=== PATIENT | female | born 1995 | race African-American/Black ===

== ENCOUNTER 2016-11-23 19:39 | Emergency (ER) | payer OTHER ==
[~2016-11-23] VITALS: Ht 167.6 cm; Wt 55.6 kg
[2016-11-23 22:50] VITALS: BP 108/66
[2016-11-23] MEDS ORDERED: AMOXICILLIN500 MG PO (23:11)
[2016-11-23] MEDS ORDERED: PERCOCET 5/325M1 TAB PO (23:11)
== END 2016-11-23 23:20 | disposition home or self-care (01) | DRG 159 ==
LOC: ED 19:39
DX: K08.89 Other specified disorders of teeth and supporting structures (principal); R42 Dizziness and giddiness; S02.5XXA Fracture of tooth (traumatic), initial encounter for closed fracture; T39.8X5A Adverse effect of other nonopioid analgesics and antipyretics, not elsewhere classified, initial encounter; Y92.009 Unspecified place in unspecified non-institutional (private) residence as the place of occurrence of the external cause

== ENCOUNTER 2017-01-16 00:42 | Emergency (ER) | payer OTHER ==
[~2017-01-16] VITALS: Ht 167.6 cm; Wt 55.6 kg
[~2017-01-16 00:42] MED LIST: AMOXICILLIN500 MG PO; PERCOCET 5/325M1 TAB PO
[2017-01-16 02:02] LABS: HEMATOCRIT 38.7 % (37.0-47.0); HEMOGLOBIN 12.6 g/dl (12.0-16.0); IMMATURE GRANULOCYTES 0.3 % (0.0-1.0); MEAN CELL VOLUME 86.8 fL CALC (80.0-100.0); MEAN CORPUSCULAR HGB 28.3 pG CALC (26.0-32.0); MEAN CORPUSCULAR HGB CONC 32.6 g/L CALC (32.0-36.0); NEUT# 13.6 thou/uL (2.00-7.15); RED BLOOD COUNT 4.46 mill/uL (4.20-5.60); RED CELL DISTRI WIDTH 13.3 % (11.5-15.5); URINE BILIRUBIN - DIPSTICK NEGATIVE (NEGATIVE); URINE BLOOD DIPSTICK NEGATIVE (NEGATIVE); URINE CLARITY SLIGHT CLOUDY; URINE COLOR YELLOW; URINE GLUCOSE - DIPSTICK NEGATIVE (NEGATIVE); URINE KETONE 15 mg/dL (NEGATIVE); URINE LEUK ESTERASE NEGATIVE (NEGATIVE); URINE NITRITE - DIPSTICK NEGATIVE (Negative); URINE PROTEIN - DIPSTICK TRACE mg/dL (NEG-TRACE); URINE SPECIFIC GRAVITY >=1.030; URINE UROBILINOGEN - DIPSTICK 0.2 E.U./dL (0.2)
[2017-01-16 02:16] LABS: ALBUMIN 4.5 g/dL (3.2-5.0); ALKALINE PHOSPHATASE 66 u/l (38-126); ANION GAP 15 (6-22 (CALC)); BILIRUBIN, TOTAL 0.2 mg/dL (0.0-1.4); BUN 12 mg/dL (7-17); BUN/CREATININE RATIO 23 (12-20 (CALC)); CALCIUM 9.5 mg/dL (8.4-10.2); CARBON DIOXIDE 23 mmol/l (22-30); CHLORIDE 105 mmol/l (95-108); CREATININE 0.5 mg/dL (0.5-1.0); GFR > 60 ML/MIN (>=60 (CALC)); GFR FOR AFR.AMER. > 60 ML/MIN (>=60 (CALC)); GLUCOSE 92 mg/dL (65-105); POTASSIUM 3.9 mmol/l (3.5-5.1); SGOT/AST 26 u/l (14-36); SGPT/ALT 40 u/l (9-52); SODIUM 140 mmol/l (137-146); TOTAL PROTEIN 7.8 g/dL (6.3-8.2)
[2017-01-16 02:58] LABS: BETA-HCG, QUANT(RESULT NUMBER) 166010 mIU/mL
[2017-01-16] MEDS ORDERED: PROMETHEGAN25 MG RE (03:09)
[2017-01-16 03:25] VITALS: BP 98/51
== END 2017-01-16 03:25 | disposition home or self-care (01) | DRG 781 ==
LOC: ED 00:42
DX: O98.511 Other viral diseases complicating pregnancy, first trimester (principal); E86.9 Volume depletion, unspecified; K52.9 Noninfective gastroenteritis and colitis, unspecified; R11.2 Nausea with vomiting, unspecified; R10.33 Periumbilical pain

== ENCOUNTER 2017-01-23 17:35 | Emergency (ER) | payer OTHER ==
[~2017-01-23] VITALS: Ht 167.6 cm; Wt 57.7 kg
[~2017-01-23 17:35] MED LIST changes: +PROMETHEGAN25 MG RE
[2017-01-23 19:46] LABS: HEMATOCRIT 36.9 % (37.0-47.0); IMMATURE GRANULOCYTES 0.2 % (0.0-1.0); MEAN CELL VOLUME 86.4 fL CALC (80.0-100.0); MEAN CORPUSCULAR HGB 28.1 pG CALC (26.0-32.0); MEAN CORPUSCULAR HGB CONC 32.5 g/L CALC (32.0-36.0); NEUT# 4.71 thou/uL (2.00-7.15); RED BLOOD COUNT 4.27 mill/uL (4.20-5.60); RED CELL DISTRI WIDTH 13.1 % (11.5-15.5); URINE BILIRUBIN - DIPSTICK NEGATIVE (NEGATIVE); URINE BLOOD DIPSTICK NEGATIVE (NEGATIVE); URINE CLARITY CLEAR; URINE COLOR YELLOW; URINE GLUCOSE - DIPSTICK NEGATIVE (NEGATIVE); URINE KETONE NEGATIVE (NEGATIVE); URINE LEUK ESTERASE NEGATIVE (NEGATIVE); URINE NITRITE - DIPSTICK NEGATIVE (Negative); URINE PROTEIN - DIPSTICK TRACE mg/dL (NEG-TRACE); URINE SPECIFIC GRAVITY >=1.030; URINE UROBILINOGEN - DIPSTICK 0.2 E.U./dL (0.2)
[2017-01-23 20:02] LABS: ALBUMIN 4.4 g/dL (3.2-5.0); ALKALINE PHOSPHATASE 54 u/l (38-126); AMYLASE 64 u/l (30-110); ANION GAP 17 (6-22 (CALC)); BILIRUBIN, TOTAL 0.3 mg/dL (0.0-1.4); BUN 11 mg/dL (7-17); BUN/CREATININE RATIO 23 (12-20 (CALC)); CALCIUM 9.7 mg/dL (8.4-10.2); CARBON DIOXIDE 20 mmol/l (22-30); CHLORIDE 106 mmol/l (95-108); CREATININE 0.5 mg/dL (0.5-1.0); GFR > 60 ML/MIN (>=60 (CALC)); GFR FOR AFR.AMER. > 60 ML/MIN (>=60 (CALC)); GLUCOSE 76 mg/dL (65-105); LIPASE 39 u/l (23-300); POTASSIUM 4.3 mmol/l (3.5-5.1); SGOT/AST 26 u/l (14-36); SGPT/ALT 36 u/l (9-52); SODIUM 138 mmol/l (137-146); TOTAL PROTEIN 7.6 g/dL (6.3-8.2)
[2017-01-23] MEDS ORDERED: OB COMPLET2 PO (22:17)
[2017-01-23 22:33] VITALS: BP 95/60
== END 2017-01-23 22:40 | disposition home or self-care (01) | DRG 781 ==
LOC: ED 17:35
PROVIDERS: Emergency Medicine
DX: O26.891 Other specified pregnancy related conditions, first trimester (principal); R10.13 Epigastric pain; Z3A.00 Weeks of gestation of pregnancy not specified

== ENCOUNTER 2017-07-26 21:44 | Inpatient (IN) | payer OTHER ==
[~2017-07-26] VITALS: Ht 167.6 cm; Wt 68.9 kg
--- NOTE | 2017-07-26 21:40 | NUR ---
ARRIVAL TO OB UNIT, VIA WHEELCHAIR C/O CONTRACTIONS ALL DAY, BECOMING STRONGER AND MORE REGULAR SINCE 190. DENIES BLEEDING/ROM, FETUS ACTIVE. ORIENTED TO ROOM ANDCAL SYSTEM. PLAN OF CARE TO OBTAIN URINE SAMPLE FOR INFECTION AND DOA, MONITOR FOR UTERINE ACTIVITY AND WELL-BEING, CHECK CERVIX AND CALL MD, EXPLAINED TO PATIENT AND AGREED UPON.
[~2017-07-26 21:44] MED LIST changes: +OB COMPLET2 PO
[2017-07-26 22:05] VITALS: BP 91/50
[2017-07-26 22:17] LABS: URINE BILIRUBIN - DIPSTICK NEGATIVE (NEGATIVE); URINE BLOOD DIPSTICK NEGATIVE (NEGATIVE); URINE COLOR YELLOW; URINE GLUCOSE - DIPSTICK NEGATIVE (NEGATIVE); URINE KETONE NEGATIVE (NEGATIVE); URINE NITRITE - DIPSTICK NEGATIVE (Negative); URINE PROTEIN - DIPSTICK NEGATIVE (NEG-TRACE); URINE SPECIFIC GRAVITY 1.015; URINE UROBILINOGEN - DIPSTICK 0.2 E.U./dL (0.2)
[2017-07-26 22:19] LABS: URINE CLARITY CLEAR; URINE LEUK ESTERASE SMALL (NEGATIVE)
[2017-07-26 22:20] LABS: BARBITURATES NEGATIVE (NEGATIVE); COCAINE NEGATIVE (NEGATIVE); METHADONE NEGATIVE (NEGATIVE); TETRAHYDROCANNABIONOL NEGATIVE (NEGATIVE); TRICYLIC ANTIDEPRESSANTS NEGATIVE (NEGATIVE)
[2017-07-26 22:21] LABS: OXCYCODONE NEGATIVE (NEGATIVE)
[2017-07-26 22:25] LABS: URINE SQUAMOUS EPITHELIAL CELL FEW EPI/hpf (0-FEW)
--- NOTE | 2017-07-26 22:49 | NUR ---
CALL PLACED TO DR. GUY TO ADVISE OF PATIENT HISTORY AND ASSESSMENT. ADVISED WILL BE IN TO ASSESS.
[2017-07-26 23:05] VITALS: BP 99/53
--- NOTE | 2017-07-26 23:11 | NUR ---
DR. GUY ON UNIT
--- NOTE | 2017-07-26 23:45 | NUR ---
UP TO BATHROOM. BOWEL MOVEMENT.
[2017-07-27] VITALS (12 sets, daily range): BP systolic 89–124; BP diastolic 48–67
--- NOTE | 2017-07-27 00:05 | NUR ---
UNABLE TO OBTAIN TRACING DUE TO MATERNAL POSITION AND MOVEMENT.
--- NOTE | 2017-07-27 00:10 | NUR ---
CALL PLACED TO DR. GUY AND PATIENT'S REQUEST FOR PAIN MEDCATION. NEW ORDERS RECEIVED.
--- NOTE | 2017-07-27 00:19 | NUR ---
CALL PLACED TO MD AND REPORT GIVEN RE/ PATIENT'S REQUEST FOR PAIN MEDICATION. NEW ORDERS RECEIVED. UPDATED PLAN OF CARE EXPLAINED TO PATIENT AND AGREED UPON.
--- NOTE | 2017-07-27 00:50 | NUR ---
MEDICATED WITH NUBAIN 10 MGS AFTER VAGINAL EXAM.
[2017-07-27 00:53] LABS: HEMATOCRIT 30.5 % (37.0-47.0); HEMOGLOBIN 9.2 g/dl (12.0-16.0); IMMATURE GRANULOCYTES 0.5 % (0.0-1.0); MEAN CELL VOLUME 80.7 fL CALC (80.0-100.0); MEAN CORPUSCULAR HGB 24.3 pG CALC (26.0-32.0); MEAN CORPUSCULAR HGB CONC 30.2 g/L CALC (32.0-36.0); NEUT# 7.74 thou/uL (2.00-7.15); RED BLOOD COUNT 3.78 mill/uL (4.20-5.60); RED CELL DISTRI WIDTH 15.9 % (11.5-15.5)
--- NOTE | 2017-07-27 01:00 | NUR ---
NO FAMILY SUPPORT AT THIS TIME. PATIENT STATES S.O. IS ON THE WAY.
[2017-07-27 01:05] LABS: ALBUMIN 3.5 g/dL (3.2-5.0); ALKALINE PHOSPHATASE 121 u/l (38-126); ANION GAP 13 (6-22 (CALC)); BILIRUBIN, TOTAL 0.2 mg/dL (0.0-1.4); BUN 9 mg/dL (7-17); BUN/CREATININE RATIO 13 (12-20 (CALC)); CARBON DIOXIDE 21 mmol/l (22-30); CHLORIDE 106 mmol/l (95-108); CREATININE 0.7 mg/dL (0.5-1.0); GFR > 60 ML/MIN (>=60 (CALC)); GFR FOR AFR.AMER. > 60 ML/MIN (>=60 (CALC)); GLUCOSE 83 mg/dL (65-105); POTASSIUM 4.3 mmol/l (3.5-5.1); SGOT/AST 20 u/l (14-36); SGPT/ALT 18 u/l (9-52); SODIUM 136 mmol/l (137-146); TOTAL PROTEIN 6.5 g/dL (6.3-8.2)
--- NOTE | 2017-07-27 01:45 | NUR ---
PATIENT REQUESTING EPIDURAL AT THIS TIME. CERVICAL EXAM 8-9 CMS 0 STATION. PATIENT ADVISED OF NEED TO MOVE TO BIRTHING ROOM FOR DELIVERY. UNABLE TO HAVE FURTHER PAIN MEDICATION. PATIENT APPREHENSIVE, BUT RESPONDING WELL TO TEACHING AND SUPPORT.
--- NOTE | 2017-07-27 01:50 | NUR ---
CALL PLACED TO . ADVISED WILL BE EN ROUTE.
--- NOTE | 2017-07-27 01:55 | NUR ---
SROM WHILE TRANSFERRING TO WHEELCHAIR. FLUID CLEAR.
--- NOTE | 2017-07-27 02:20 | NUR ---
MD AT BEDSIDE. PATIENT FEELING PRESSURE. ENCOURAGED TO PUSH WITH CONTRACTIONS. REMAINS ON LT. SIDE.
--- NOTE | 2017-07-27 03:00 | NUR ---
PATIENT TURNED TO RT. SIDE, ENCOURAGED FREQUENT POSITION CHANGES FOR OPTIMUM DESCENT.
--- NOTE | 2017-07-27 03:20 | NUR ---
PRESENTING PART ON PERINEUM. MD IN ATTENDANCE.
--- NOTE | 2017-07-27 03:35 | NUR ---
VIABLE FEMALE INFANT AT 0325 OVER INTACT PERINEUM. PLACENTA DELIVERED SPONTANEOUSLY BY CONTROLLED CORD TRACTION. PATIENT CLEANED AND GIVEN WARM BLANKETS.
--- NOTE | 2017-07-27 04:50 | NUR ---
UP TO BATHROOM WITH ASSIST. TOLERATED WELL WITHOUT DIZZINESS OR LIGHTHEADEDNESS. ABLE TO VOID 300 MLS CLEAR URINE WITHOUT DIFFICULTY. INSTRUCTED IN PERICARE. AMBULATED TO ROOM 205 WITHOUT DIFFICULTY. ORIENTED TO ROOM AND CALL SYSTEM. SIDE RAILS UP X 2. CALL HAN WITHIN REACH.
--- NOTE | 2017-07-27 06:02 | NUR ---
REPORT PREPARED FOR ONCOMING SHIFT.
--- NOTE | 2017-07-27 06:32 | NUR ---
RESTING QUIETLY WITHOUT COMPLAINT. NO CLINICAL NEEDS IDENTIFIED AT THIS TIME. SIDE RAILS UP X 2. CALL HAN WITHIN REACH. REPORT PREPARED FOR ONCOMING SHIFT.
--- NOTE | 2017-07-27 07:30 | NUR ---
PATIENT LYING IN BED AWAKE. ASSESSMENT DONE CHARTED. IVF OF LR WITH PITOCIN IN PROGRESS. COMPLAINS OF LOWER ABDOMINAL CRAMPING. ADVISED TO VOID. SAME DONE. WARM COMPRESS APPLIED TO LOWER ABDOMEN FOR PAIN RELIEF. MOTRIN NOT YET DUE. WILL GET ADDITIONAL PAIN MED ORDER FROM MD IF PAIN IS NOT RELIEVED BY COMFORT MEASURES. BREAKFAST OFFERED. NO OTHER CONCERN VOICED.
--- NOTE | 2017-07-27 08:10 | NUR ---
PATIENT STATES PAIN RELIEVED BY VOIDING. WILL CONTINUE TO MONITOR.
--- NOTE | 2017-07-27 14:00 | NUR ---
encouraged to watch discharge videos and read instuctions. rn will review same afterwards.
--- NOTE | 2017-07-27 18:58 | NUR ---
in room with infant. offered no concerns. end of shift report given to neena carreon.
--- NOTE | 2017-07-27 19:00 | NUR ---
REPORT RECEIVED FROM Wai TARIQ RN. BEDSIDE REPORTING COMPLETED. PATIENT UP AND AROUND IN ROOM. GIVES PAIN SCALE 5/10 BUT DECLINES MEDICATION AT THIS TIME. IS AWARE THAT IT IS AVAILABLE. WILL CONTINUE TO MONITOR.
--- NOTE | 2017-07-27 21:20 | NUR ---
ASSESSMENT COMPLETED. NO CLINICAL NEEDS IDENTIFIED AT THIS TIME. REMINDED TO WATCH [facility] EDUCATION VIDEOS. VERBALIZED UNDERSTANDING.
--- NOTE | 2017-07-27 23:37 | NUR ---
RESTING WITH EYES CLOSED, BED IN THE LOWEST POSITION. SIDE RAILS UP X 2. CALL BWELL WITHIN REACH.
[2017-07-28 04:00] LABS: HEMATOCRIT 31.5 % (37.0-47.0); HEMOGLOBIN 9.5 g/dl (12.0-16.0); IMMATURE GRANULOCYTES 0.5 % (0.0-1.0); MEAN CELL VOLUME 80.4 fL CALC (80.0-100.0); MEAN CORPUSCULAR HGB 24.2 pG CALC (26.0-32.0); MEAN CORPUSCULAR HGB CONC 30.2 g/L CALC (32.0-36.0); NEUT# 7.66 thou/uL (2.00-7.15); RED BLOOD COUNT 3.92 mill/uL (4.20-5.60)
[2017-07-28 04:06] VITALS: BP 91/56
--- NOTE | 2017-07-28 04:08 | NUR ---
LABS DRAWN ORDERED WITHOUT DIFFICULTY. PATIENT TOLERATED WELL. DENIES FURTHER NEEDS AT THIS TIME. SIDE RAILS UP X 2. CALL HAN WITHIN [facility].
--- NOTE | 2017-07-28 06:15 | NUR ---
REPORT PREPARED FOR ONCOMING SHIFT.
[2017-07-28 08:15] VITALS: BP 95/60
--- NOTE | 2017-07-28 08:15 | NUR ---
ASSESSMENT IS COMPLETED: PT EXPRESSED CONCERN RE: A STOOL SOFTENER. ABD IS SOFT WITH ACTIVE BS. CONTINUE TO OSBERVE AND MONITOR.
[2017-07-28] MEDS ORDERED: FERR SULFATE325 MG PO (10:59)
[2017-07-28] MEDS ORDERED: NORCO1 TA1 PO (10:59)
[2017-07-28] MEDS ORDERED: IBUPROFEN600 MG PO (11:00)
--- NOTE | 2017-07-28 12:04 | NUR ---
IN TO VISIT WITH PT. DISCHARGE INSTRUCTIONS ARE BEING PREPAIRED.AND GIVEN TO PT. SHE IS IN THE SHOWER WAITING ON HER RIDE.
--- NOTE | 2017-07-28 14:42 | NUR ---
pt has been transported from the unit to car. with on her lap. all papers with pt. all belongings. Discharge instructions given. Patient verbalizes understanding of same. Discharged in stable condition via Wheelchair to Home with family. All belongings sent with pt.
== END 2017-07-28 14:21 | disposition home or self-care (01) | DRG 775 ==
LOC: OB 21:44 → OBOP 21:44 → OB 07-27 00:40
PROC: 10E0XZZ Delivery of Products of Conception, External Approach (ICD-10-PCS; principal; 2017-07-27)
DX: O99.02 Anemia complicating childbirth (principal); D50.9 Iron deficiency anemia, unspecified; Z3A.38 38 weeks gestation of pregnancy; Z37.0 Single live birth

== ENCOUNTER 2017-12-05 17:33 | Emergency (ER) | payer OTHER ==
[~2017-12-05] VITALS: Ht 167.6 cm; Wt 59.8 kg
[~2017-12-05 17:33] MED LIST changes: +FERR SULFATE325 MG PO; +IBUPROFEN600 MG PO; +NORCO1 TA1 PO
[2017-12-05] MEDS ORDERED: AFRIN 12 HOUR0.05 % (17:50)
[2017-12-05] MEDS ORDERED: MOTRIN800 MG PO (17:50)
[2017-12-05] MEDS ORDERED: ZOFRAN4 MG/TAB PO (18:09)
[2017-12-05 18:10] VITALS: BP 111/68
== END 2017-12-05 18:10 | disposition home or self-care (01) | DRG 781 ==
LOC: ED 17:33
DX: O98.519 Other viral diseases complicating pregnancy, unspecified trimester (principal); B34.9 Viral infection, unspecified; Z3A.00 Weeks of gestation of pregnancy not specified; R09.89 Other specified symptoms and signs involving the circulatory and respiratory systems; R11.0 Nausea; R42 Dizziness and giddiness; R53.1 Weakness

== ENCOUNTER 2018-07-22 22:43 | Emergency (ER) | payer OTHER ==
[~2018-07-22 22:43] MED LIST changes: +AFRIN 12 HOUR0.05 %; +KEFLEX500 MG PO; +MOTRIN800 MG PO; +PRENATA4 PO; +ZOFRAN4 MG/TAB PO
[2018-07-22 22:50] VITALS: BP 110/71
== END 2018-07-22 23:11 ==
LOC: ED 22:43
DX: O47.1 False labor at or after 37 completed weeks of gestation (principal); Z3A.39 39 weeks gestation of pregnancy

== ENCOUNTER 2018-07-24 02:28 | Emergency (ER) | payer OTHER ==
[2018-07-24 03:08] VITALS: BP 129/73
== END 2018-07-24 03:08 ==
LOC: ED 02:28
DX: Z34.83 Encounter for supervision of other normal pregnancy, third trimester (principal)

== ENCOUNTER 2019-04-11 15:08 | Emergency (ER) | payer OTHER ==
[~2019-04-11] VITALS: Ht 167.6 cm; Wt 62.7 kg
[2019-04-11 18:10] VITALS: BP 112/67
== END 2019-04-11 18:10 | disposition home or self-care (01) ==
LOC: ED 15:08
DX: S40.012A Contusion of left shoulder, initial encounter (principal); W20.8XXA Other cause of strike by thrown, projected or falling object, initial encounter; Y93.89 Activity, other specified; Y92.512 Supermarket, store or market as the place of occurrence of the external cause

== ENCOUNTER 2020-06-09 15:47 | Emergency (ER) | payer OTHER ==
[~2020-06-09] VITALS: Ht 167.6 cm; Wt 66.0 kg
[2020-06-09 17:20] LABS: HEMATOCRIT 39.4 % (37.0-47.0); IMMATURE GRANULOCYTES 0.2 % (0.0-5.0); MEAN CELL VOLUME 88.5 fL CALC (80.0-100.0); MEAN CORPUSCULAR HGB CONC 30.5 g/dL CAL (32.0-36.0); NEUT# 5.6 thou/uL (2.00-7.15); RED BLOOD COUNT 4.45 mill/uL (4.20-5.60); RED CELL DISTRI WIDTH 13.8 % (11.5-15.5)
[2020-06-09 17:36] LABS: ALBUMIN 3.9 g/dL (3.2-5.0); ALKALINE PHOSPHATASE 68 u/l (38-126); ANION GAP 11 (6-22 (CALC)); BUN 15 mg/dL (7-17); BUN/CREATININE RATIO 24 (12-20 (CALC)); CARBON DIOXIDE 26 mmol/l (22-30); CHLORIDE 109 mmol/l (95-108); CREATININE 0.6 mg/dL (0.5-1.0); GFR > 60 ML/MIN (>=60 (CALC)); GFR FOR AFR.AMER. > 60 ML/MIN (>=60 (CALC)); POTASSIUM 4.2 mmol/l (3.5-5.1); SGOT/AST 20 u/l (14-36); SODIUM 141 mmol/l (137-146); TOTAL PROTEIN 6.9 g/dL (6.3-8.2)
[2020-06-09 17:42] LABS: BILIRUBIN, TOTAL 0.1 mg/dL (0.0-1.4)
[2020-06-09 17:53] LABS: BETA-HCG, QUANT(RESULT NUMBER) <2 mIU/mL
[2020-06-09 18:16] VITALS: BP 114/58
== END 2020-06-09 18:22 | disposition home or self-care (01) ==
LOC: ED 15:47
PROVIDERS: Emergency Medicine
DX: N93.8 Other specified abnormal uterine and vaginal bleeding (principal)

== ENCOUNTER 2021-04-04 10:26 | Emergency (ER) | payer OTHER ==
[~2021-04-04] VITALS: Ht 167.6 cm; Wt 86.0 kg
[2021-04-04 14:21] VITALS: BP 126/78
== END 2021-04-04 14:21 | disposition home or self-care (01) ==
LOC: ED 10:26
DX: O98.513 Other viral diseases complicating pregnancy, third trimester (principal); U07.1 COVID-19; Z3A.38 38 weeks gestation of pregnancy

== ENCOUNTER 2021-06-05 17:19 | Emergency (ER) | payer OTHER ==
[~2021-06-05] VITALS: Ht 167.6 cm; Wt 67.7 kg
[2021-06-05] MEDS ORDERED: IBUPROFEN600 MG PO (19:01)
[2021-06-05 19:20] VITALS: BP 119/67
== END 2021-06-05 19:20 | disposition home or self-care (01) | DRG 563 ==
LOC: ED 17:19
DX: S39.012A Strain of muscle, fascia and tendon of lower back, initial encounter (principal); V43.52XA Car driver injured in collision with other type car in traffic accident, initial encounter

== ENCOUNTER 2021-11-16 09:09 | Emergency (ER) | payer OTHER ==
[~2021-11-16] VITALS: Ht 167.6 cm; Wt 65.0 kg
[2021-11-16] MEDS ORDERED: FERRAPLUS 90 PO (09:23)
[2021-11-16 10:02] LABS: HEMATOCRIT 39.7 % (37.0-47.0); HEMOGLOBIN 12.5 g/dl (12.0-16.0); IMMATURE GRANULOCYTES 0.1 % (0.0-5.0); MEAN CELL VOLUME 86.3 fL CALC (80.0-100.0); MEAN CORPUSCULAR HGB 27.2 pG CALC (26.0-32.0); MEAN CORPUSCULAR HGB CONC 31.5 g/dL CAL (32.0-36.0); NEUT# 6.25 thou/uL (2.00-7.15); RED BLOOD COUNT 4.6 mill/uL (4.20-5.60)
[2021-11-16 10:03] LABS: URINE BILIRUBIN - DIPSTICK NEGATIVE (NEGATIVE); URINE BLOOD DIPSTICK NEGATIVE (NEGATIVE); URINE COLOR YELLOW; URINE GLUCOSE - DIPSTICK NEGATIVE (NEGATIVE); URINE KETONE NEGATIVE (NEGATIVE); URINE LEUK ESTERASE SMALL (NEGATIVE); URINE NITRITE - DIPSTICK NEGATIVE (Negative); URINE PH 6.5 (4.5-8.0); URINE PROTEIN - DIPSTICK NEGATIVE (NEG-TRACE); URINE SPECIFIC GRAVITY 1.025; URINE UROBILINOGEN - DIPSTICK 0.2 E.U./dL (0.2)
[2021-11-16 10:11] LABS: URINE WBC 20-50 WBC/hpf (0-5)
[2021-11-16 10:12] LABS: URINE SQUAMOUS EPITHELIAL CELL MODERATE EPI/hpf (0-FEW)
[2021-11-16 10:19] LABS: ALBUMIN 4.1 g/dL (3.2-5.0); ALKALINE PHOSPHATASE 63 u/l (38-126); ANION GAP 11 (6-22 (CALC)); BUN 9 mg/dL (7-17); BUN/CREATININE RATIO 17 (12-20 (CALC)); CARBON DIOXIDE 25 mmol/l (22-30); CHLORIDE 103 mmol/l (95-108); CREATININE 0.6 mg/dL (0.5-1.0); GFR > 60 ML/MIN (>=60 (CALC)); GFR FOR AFR.AMER. > 60 ML/MIN (>=60 (CALC)); LIPASE 25 u/l (23-300); POTASSIUM 3.6 mmol/l (3.5-5.1); SGOT/AST 18 u/l (14-36); SODIUM 135 mmol/l (137-146); TOTAL PROTEIN 7.8 g/dL (6.3-8.2)
[2021-11-16 10:29] LABS: BILIRUBIN, TOTAL 0.2 mg/dL (0.0-1.4)
[2021-11-16] MEDS ORDERED: ZOFRAN4 MG/TAB PO (11:33)
[2021-11-16] MEDS ORDERED: OMNI-PAC300 MG PO (11:33)
[2021-11-16 11:38] VITALS: BP 127/83
== END 2021-11-16 12:25 | disposition home or self-care (01) ==
LOC: ED 09:09
PROVIDERS: Family Medicine
DX: O23.40 Unspecified infection of urinary tract in pregnancy, unspecified trimester (principal); N39.0 Urinary tract infection, site not specified; O99.280 Endocrine, nutritional and metabolic diseases complicating pregnancy, unspecified trimester; E86.0 Dehydration; Z3A.00 Weeks of gestation of pregnancy not specified

== ENCOUNTER 2022-03-06 10:47 | Emergency (ER) | payer OTHER ==
[~2022-03-06] VITALS: Ht 167.6 cm; Wt 70.9 kg
[~2022-03-06 10:47] MED LIST changes: +FERRAPLUS 90 PO; +OMNI-PAC300 MG PO
[2022-03-06 10:53] VITALS: BP 104/70
[2022-03-06 11:00] VITALS: BP 102/66
[2022-03-06] MEDS ORDERED: PRENATA4 PO (11:01)
[2022-03-06 11:15] VITALS: BP 81/44
[2022-03-06 11:28] VITALS: BP 90/52
[2022-03-06 11:30] VITALS: BP 89/45
[2022-03-06 11:45] VITALS: BP 96/50
== END 2022-03-06 11:55 | disposition home or self-care (01) ==
LOC: ED 10:47
DX: U07.1 COVID-19 (principal); R05.9 Cough, unspecified; R09.89 Other specified symptoms and signs involving the circulatory and respiratory systems; R53.83 Other fatigue

== ENCOUNTER 2022-11-19 16:43 | Emergency (ER) | payer OTHER ==
[~2022-11-19] VITALS: Ht 167.6 cm; Wt 73.0 kg
[2022-11-19] VITALS (7 sets, daily range): BP systolic 106–123; BP diastolic 65–84
== END 2022-11-19 19:42 | disposition home or self-care (01) ==
LOC: ED 16:43
DX: J02.9 Acute pharyngitis, unspecified (principal)

== ENCOUNTER 2024-04-02 16:29 | Emergency (ER) | payer OTHER ==
[2024-04-02] VITALS (7 sets, daily range): BP systolic 101–109; BP diastolic 61–71
[~2024-04-02] VITALS: Ht 167.6 cm; Wt 65.8 kg
[2024-04-02] MEDS ORDERED: KETOROLAC TROMETHAMINE 30 MG/ML SDV IM ONE (16:40)
[2024-04-02] MEDS ORDERED: VIBRAMYCIN100 M2 PO (17:37)
[2024-04-02] MEDS ORDERED: ZYRTEC10 MG PO (17:37)
[2024-04-02] MEDS ORDERED: ALLERGY RE50 MCG/ACT (17:37)
== END 2024-04-02 18:07 | disposition home or self-care (01) ==
LOC: ED 16:29
DX: B34.9 Viral infection, unspecified (principal); J32.9 Chronic sinusitis, unspecified; Z20.822 Contact with and (suspected) exposure to COVID-19

== ENCOUNTER 2024-08-02 12:57 | Emergency (ER) | payer OTHER ==
[~2024-08-02] VITALS: Ht 167.6 cm; Wt 72.0 kg
[~2024-08-02 12:57] MED LIST changes: +ALLERGY RE50 MCG/ACT; +VIBRAMYCIN100 M2 PO; +ZYRTEC10 MG PO
[2024-08-02] MEDS ORDERED: IBUPROFEN600 MG PO (15:14)
[2024-08-02] MEDS ORDERED: AMOX/K CLAV875 M1 PO (15:14)
[2024-08-02] MEDS ORDERED: CIPROFLOXACIN/D1 SUS AS (15:14)
[2024-08-02 15:17] VITALS: BP 112/64
== END 2024-08-02 15:20 | disposition home or self-care (01) ==
LOC: ED 12:57
DX: H60.92 Unspecified otitis externa, left ear (principal); H66.92 Otitis media, unspecified, left ear; Z20.822 Contact with and (suspected) exposure to COVID-19

== ENCOUNTER 2024-09-15 11:09 | Emergency (ER) | payer OTHER ==
[~2024-09-15] VITALS: Ht 167.6 cm; Wt 72.5 kg
[2024-09-15] VITALS (7 sets, daily range): BP systolic 101–109; BP diastolic 66–73
[~2024-09-15 11:09] MED LIST changes: +AMOX/K CLAV875 M1 PO; +CIPROFLOXACIN/D1 SUS AS
[2024-09-15] MEDS ORDERED: PENICILLN VK500 M1 PO (12:40)
[2024-09-15] MEDS ORDERED: NAPROXEN500 MG PO (12:40)
== END 2024-09-15 13:09 | disposition home or self-care (01) ==
LOC: ED 11:09
DX: K05.6 Periodontal disease, unspecified (principal); S02.5XXA Fracture of tooth (traumatic), initial encounter for closed fracture; X58.XXXA Exposure to other specified factors, initial encounter

== ENCOUNTER 2024-10-19 16:12 | Emergency (ER) | payer OTHER ==
[~2024-10-19] VITALS: Ht 167.6 cm; Wt 73.0 kg
[2024-10-19] VITALS (16 sets, daily range): BP systolic 97–125; BP diastolic 56–110
[~2024-10-19 16:12] MED LIST changes: +NAPROXEN500 MG PO; +PENICILLN VK500 M1 PO
[2024-10-19] MEDS ORDERED: KETOROLAC TROMETHAMINE 15 MG/ML SDV IV STA (17:02)
[2024-10-19 17:24] LABS: BASO% 0.2 % (0-3); EOS% 2.7 % (0-8); HEMATOCRIT 40.5 % (37.0-47.0); HEMOGLOBIN 12.2 g/dl (12.0-16.0); IMMATURE GRANULOCYTES 0.4 % (0.0-5.0); LYMPH% 26.9 % (15-41); MEAN CELL VOLUME 88.6 fL CALC (80.0-100.0); MEAN CORPUSCULAR HGB 26.7 pG CALC (26.0-32.0); MEAN CORPUSCULAR HGB CONC 30.1 g/dL CAL (32.0-36.0); MONO% 6.2 % (2-13); NEUT# 5.68 thou/uL (2.00-7.15); NEUT% 63.6 % (42-76); RED BLOOD COUNT 4.57 mill/uL (4.20-5.60); RED CELL DISTRI WIDTH 13.7 % (11.5-15.5)
[2024-10-19] MEDS ORDERED: DIATRIZOATE MEGLUMINE & SODIUM 30 ML/BTL PO ONE (17:50)
[2024-10-19 18:01] LABS: ALBUMIN 3.7 g/dL (3.2-5.0); BILIRUBIN, TOTAL 0.4 mg/dL (0.02-1.3); CREATININE 0.7 mg/dL (0.5-1.0); POTASSIUM 4.1 mmol/l (3.5-5.1); TOTAL PROTEIN 6.9 g/dL (6.3-8.2)
[2024-10-19 18:50] LABS: URINE BILIRUBIN - DIPSTICK Negative (NEGATIVE); URINE BLOOD DIPSTICK Trace-intact (NEGATIVE); URINE GLUCOSE - DIPSTICK Negative (NEGATIVE); URINE KETONE Negative (NEGATIVE); URINE LEUK ESTERASE Negative (NEGATIVE); URINE NITRITE - DIPSTICK Negative (Negative); URINE PROTEIN - DIPSTICK Negative (NEG-TRACE); URINE SPECIFIC GRAVITY 1.015; URINE UROBILINOGEN - DIPSTICK 0.2 E.U./dL (0.2)
[2024-10-19 18:51] LABS: URINE COLOR Yellow
[2024-10-19] MEDS ORDERED: PROMETHAZINE HCL 25 MG/ML AMP IV ONE (19:00)
[2024-10-19] MEDS ORDERED: LOPERAMIDE HCL 2 MG CAP PO ONE (19:00)
[2024-10-19] MEDS ORDERED: SODIUM CHLORIDE 0.9% 1,000 ML IV ONE (19:00)
[2024-10-19] MEDS ORDERED: KETOROLAC TROMETHAMINE 15 MG/ML SDV IV ONE (19:00)
[2024-10-19] MEDS ORDERED: ANTI-DIARRHE2 M1 PO (20:40)
[2024-10-19] MEDS ORDERED: PROMETHAZINE HY25 M1 PO (20:40)
== END 2024-10-19 21:04 | disposition home or self-care (01) ==
LOC: ED 16:12
PROVIDERS: Family Medicine
DX: A08.4 Viral intestinal infection, unspecified (principal); Z20.822 Contact with and (suspected) exposure to COVID-19
CPT/HCPCS: J1885; J2550; Q9967